=== PATIENT | male | born 1970 | race Caucasian/White ===

== ENCOUNTER 2016-07-25 20:31 | Inpatient (IN) | payer OTHER ==
[~2016-07-25] VITALS: Ht 177.8 cm; Wt 92.4 kg
[2016-07-25] MEDS ORDERED: SODIUM CHLORIDE 0.9% 1000ML 2,000 ML IV STA (21:01)
[2016-07-25] MEDS ORDERED: ONDANSETRON INJ 2 MG/ML 2 ML VIAL IV STA (21:01)
[2016-07-25] MEDS ORDERED: ACETAMINOPHEN 500 MG TAB PO STA (21:01)
--- NOTE | 2016-07-25 21:26 | DIAGNOSTIC IMAGING REPORT ---
CHEST ONE VIEW PORTABLE CLINICAL HISTORY: Fever. Sepsis. COMPARISON STUDY: No previous studies for comparison. FINDINGS: Lung volumes are normal. There is no pneumothorax or pleural effusion. There is mild reticulonodular interstitial thickening. There is no lobar consolidation. Cardiac size is at the upper limits of normal. Mediastinal contours are normal. IMPRESSION: Mild reticulonodular interstitial thickening. While this could be due to normal vessels, the findings raise the possibility of an infectious process. No consolidation identified. Electronically signed by: Ethan Duke M.D. 07/25/2016 9:24 PM Dictated Date/Time: 07/25/2016 9:23 PM
[2016-07-25 21:46] LABS: BASO % 0.3 %; BASO ABS # 0.02 K/uL (0-0.2); COMPLETE YES; EOS % 0.1 %; HEMATOCRIT 46.4 % (42-52); IG% 0.3 %; LYMPH % 9.1 %; LYMPH ABS # 0.72 K/uL (1.2-3.4); MEAN CELL VOLUME 87.9 fL (80-100); MEAN CORPUSCULAR HEMOGLOBIN 31.1 pg (25-34); MEAN CORPUSCULAR HGB CONC 35.3 g/dl (32-36); MEAN PLATELET VOLUME 11.2 fL (7.4-10.4); MONO % 10.1 %; NEUT % 80.1 %; PLATELET COUNT 147 K/uL (130-400); RED BLOOD COUNT 5.28 M/uL (4.7-6.1); WHITE BLOOD COUNT 7.94 K/uL (4.8-10.8)
[2016-07-25 22:05] LABS: ALT/SGPT 25 U/L (12-78); BLOOD UREA NITROGEN 13 mg/dl (7-18); CARBON DIOXIDE 21 mmol/L (21-32); CHLORIDE 105 mmol/L (98-107); CREATININE 0.83 mg/dl (0.60-1.40); GLUCOSE 118 mg/dl (70-99); POTASSIUM 3.6 mmol/L (3.5-5.1); SODIUM 137 mmol/L (136-145)
[2016-07-25 22:10] LABS: ALKALINE PHOSPHATASE 72 U/L (45-117); AST/SGOT 17 U/L (15-37)
[2016-07-25 22:11] LABS: URINE APPEARANCE CLEAR (CLEAR); URINE BILIRUBIN NEG (NEG); URINE COLOR DK YELLOW; URINE NITRITE NEG (NEG); URINE SPECIFIC GRAVITY 1.023 (1.000-1.030); UROBILINOGEN NEG (NEG); ZZUR CULT IF INDIC CLEAN CATCH NO
[2016-07-25 22:12] LABS: MANUAL MICROSCOPIC REQUIRED? NO; REVIEW REQ? NO
[2016-07-25 22:16] LABS: CALCIUM 8.7 mg/dl (8.5-10.1)
[2016-07-25] MEDS ORDERED: VANCOMYCIN INJ 2,300 MG in SODIUM CHLORIDE 0.9% 500ML 500 ML IV STA (22:23)
[2016-07-25] MEDS ORDERED: CEFTRIAXONE SOD INJ 1 GM ADDVIAL IV STA (22:23)
[2016-07-25 22:51] LABS: LYME DISEASE AB IGG NEG (NEG); LYME DISEASE AB IGM NEG (NEG)
[2016-07-25 23:20] LABS: PROCALCITONIN 0.25 ng/ml (0-0.5)
--- NOTE | 2016-07-25 23:30 | EMERGENCY ROOM VISIT NOTE ---
History Report prepared by Lion: Nasir Tipton Under the Supervision of: Dr. Eusebio Winn M.D. First contact with patient: 20:44 Chief Complaint: FEVER Stated Complaint: HIGH FEVER, CHILLS, HEADACHE, BODY ACHES, NAUSEA History of Present Illness The patient is a 45 year old male who presents to the Emergency Room with complaints of persistent fevers beginning 2 days ago. He also complains of a headache, nausea, weakness, chills and body aches. He has taken Ibuprofen as well as Tylenol for his symptoms but has seen minimal relief. The patient states "it is unpleasant to urinate", but denies any pain. He denies any pain with defecation. He denies any lymphadenopathy, sore throat, chest pain or vomiting. The patient has no known tick bites but notes that he works outside frequently. He notes that he has had a small rash on his neck for a few days. Source of History: patient Onset: 2 days ago Quality: other (fevers) Timing: other (persistent) Associated Symptoms: + chills, + headache, + sorethroat, + nausea, + weakness, + rash, + lymphadenopathy, No chest pain, No vomiting Note: The patient also complains of body aches. Review of Systems See HPI for pertinent positives & negatives. A total of 10 systems reviewed and were otherwise negative. Past Medical & Surgical Medical Problems: (1) No Known Active Medical Problems Family History No pertinent family history stated. Social History Smoking Status: Former Smoker Housing Status: lives with family Occupation Status: employed Current/Historical Medications No Active Prescriptions or Reported Meds Allergies Coded Allergies: No Known Allergies (Unverified , 07/25/16) Physical Exam Vital Signs Date Time Temp Pulse Resp B/P (MAP) Pulse Ox O2 Delivery O2 Flow Rate FiO2 07/25/16 23:07 36.7 82 18 104/57 95 Room Air 07/25/16 20:39 39.1 106 18 104/62 96 Room Air Physical Exam GENERAL: Patient is dehydrated appearing and in mild distress. HEENT: No acute trauma, normocephalic atraumatic, mucous membranes moist, no nasal congestion, no scleral icterus. NECK: No stridor, no adenopathy, no meningismus, trachea is midline. LUNGS: No dyspnea. Clear to auscultation and equal bilaterally. No wheeze, no rhonchi. HEART: Tachycardic rate with a regular rhythm. No murmurs, rubs, gallops appreciated. ABDOMEN: Soft, nontender, bowel sounds positive, no masses appreciated, no peritonitis. BACK: No midline tenderness, no CVA tenderness EXTREMITIES: Normal motion all extremities, no cyanosis, no edema. NEUROLOGIC: Alert and oriented, no acute motor or sensory deficits, no focal weakness, cranial nerves grossly intact. SKIN: No jaundice, no diaphoresis. Small insect bite in right lower neck with surrounding cellulitis. Medical Decision & Procedures ER Provider Diagnostic Interpretation: X ray results are stated below per my interpretation and the radiologist's interpretation. CHEST ONE VIEW PORTABLE FINDINGS: Lung volumes are normal. There is no pneumothorax or pleural effusion. There is mild reticulonodular interstitial thickening. There is no lobar consolidation. Cardiac size is at the upper limits of normal. Mediastinal contours are normal. IMPRESSION: Mild reticulonodular interstitial thickening. While this could be due to normal vessels, the findings raise the possibility of an infectious process. No consolidation identified. Electronically signed by: Ethan Duke M.D. Laboratory Results 07/25/16 21:32 Red Blood Count 5.28, Mean Corpuscular Volume 87.9, Mean Corpuscular Hemoglobin 31.1, Mean Corpuscular Hemoglobin Concent 35.3, Mean Platelet Volume 11.2, Neutrophils (%) (Auto) 80.1, Lymphocytes (%) (Auto) 9.1, Monocytes (%) (Auto) 10.1, Eosinophils (%) (Auto) 0.1, Basophils (%) (Auto) 0.3, Neutrophils # (Auto ) 6.37, Lymphocytes # (Auto) 0.72, Monocytes # (Auto) 0.80, Eosinophils # (Auto ) 0.01, Basophils # (Auto) 0.02 07/25/16 21:32 Test 07/25/16 21:32 07/25/16 21:39 07/25/16 21:50 White Blood Count 7.94 K/uL (4.8-10.8) Red Blood Count 5.28 M/uL (4.7-6.1) Hemoglobin 16.4 g/dL (14.0-18.0) Hematocrit 46.4 % (42-52) Mean Corpuscular Volume 87.9 fL (80-100) Mean Corpuscular Hemoglobin 31.1 pg (25-34) Mean Corpuscular Hemoglobin Concent 35.3 g/dl (32-36) Platelet Count 147 K/uL (130-400) Mean Platelet Volume 11.2 fL (7.4-10.4) Neutrophils (%) (Auto) 80.1 % Lymphocytes (%) (Auto) 9.1 % Monocytes (%) (Auto) 10.1 % Eosinophils (%) (Auto) 0.1 % Basophils (%) (Auto) 0.3 % Neutrophils # (Auto) 6.37 K/uL (1.4-6.5) Lymphocytes # (Auto) 0.72 K/uL (1.2-3.4) Monocytes # (Auto) 0.80 K/uL (0.11-0.59) Eosinophils # (Auto) 0.01 K/uL (0-0.5) Basophils # (Auto) 0.02 K/uL (0-0.2) RDW Standard Deviation 40.7 fL (36.4-46.3) RDW Coefficient of Variation 12.6 % (11.5-14.5) Immature Granulocyte % (Auto) 0.3 % Immature Granulocyte # (Auto) 0.02 K/uL (0.00-0.02) Anion Gap 11.0 mmol/L (3-11) Est Creatinine Clear Calc Drug Dose 127.6 ml/min Estimated GFR () 124.0 Estimated GFR (Non- 107.0 BUN/Creatinine Ratio 16.0 (10-20) Calcium Level 8.7 mg/dl (8.5-10.1) Total Bilirubin 0.6 mg/dl (0.2-1) Aspartate Amino Transf (AST/SGOT) 17 U/L (15-37) Alanine Aminotransferase (ALT/SGPT) 25 U/L (12-78) Alkaline Phosphatase 72 U/L (45-117) Total Creatine Kinase 28 U/L (39-308) Troponin I < 0.015 ng/ml (0-0.045) C-Reactive Protein 12.70 mg/dl (0-0.29) Total Protein 7.2 gm/dl (6.4-8.2) Albumin 3.6 gm/dl (3.4-5.0) Globulin 3.6 gm/dl (2.5-4.0) Albumin/Globulin Ratio 1.0 (0.9-2) Procalcitonin 0.25 ng/ml (0-0.5) Lyme Disease IgG Antibody NEG (NEG) Lyme Disease IgM Antibody NEG (NEG) Bedside Lactic Acid Venous 0.71 mmol/L (0.90-1.70) Urine Color DK YELLOW Urine Appearance CLEAR (CLEAR) Urine pH 6.0 (4.5-7.5) Urine Specific [place] 1.023 (1.000-1.030) Urine Protein 1+ (NEG) Urine Glucose (UA) NEG (NEG) Urine Ketones 3+ (NEG) Urine Occult Blood 2+ (NEG) Urine Nitrite NEG (NEG) Urine Bilirubin NEG (NEG) Urine Urobilinogen NEG (NEG) Urine Leukocyte Esterase NEG (NEG) Urine WBC (Auto) 1-5 /hpf (0-5) Urine RBC (Auto) 10-30 /hpf (0-4) Urine Hyaline Casts (Auto) 1-5 /lpf (0-5) Urine Epithelial Cells (Auto) 10-20 /lpf (0-5) Urine Bacteria (Auto) NEG (NEG) Laboratory results as reviewed by me. Medications Administered Medications (Trade) Dose Ordered Sig/[place] Route Start Time Stop Time Status Last Admin Dose Admin Sodium Chloride 2,000 ml @ 999 mls/hr Q2H1M STAT IV 07/25/16 21:01 07/25/16 23:01 DC 07/25/16 21:01 999 MLS/HR Acetaminophen (Tylenol Tab) 1,000 mg NOW STAT PO 07/25/16 21:01 07/25/16 21:03 DC 07/25/16 21:43 1,000 MG Ondansetron HCl (Zofran Inj) 4 mg NOW STAT IV 07/25/16 21:01 07/25/16 21:03 DC 07/25/16 21:43 4 MG Ceftriaxone Sodium (Rocephin Inj) 1 gm NOW STAT IV 07/25/16 22:23 07/25/16 22:25 DC 07/25/16 23:05 1 GM ED Course 2046: The patient was evaluated in room B2. A complete history and physical exam was performed. 2100: Ordered Zofran Inj 4 mg IV, Tylenol Tab 1000 mg PO, Sodium Chloride 2000 mL @ 999 mL/hr IV. Medical Decision Differential: Viral, Pharyngitis, Cellulitis, Pneumonia, Influenza, Meningitis, Sepsis, Bacteremia, UTI/Pyelonephritis, Endocrine, Toxicologic, amongst other pathologies entertained. 45 yr old male arrives quite ill appearing with right anterior neck cellulitis. Does not appear meningitic and I do not feel he has meningitis. Fever, tachycardia and ill appearing. 2 L NSS bolus, Tylenol given with vast improvement in how he looks, HR down, and patient feeling much better. CXR with questionable early pneumonia though patient denies any lung symptoms. WBC OK, though CRP severely elevated. Lyme negative. Procalcitonin currently not significantly elevated. He has blood in urine though no evidence rhabdo. Given severity of how poorly he looked on arrival I feel that bringing in for IV abx and close monitoring is acceptable. Hospitalist consulted for further evaluation/management. Impression Primary Impression: Fever Additional Impressions: Cellulitis Pneumonia Sepsis Scribe Attestation The scribe's documentation has been prepared under my direction and personally reviewed by me in its entirety. I confirm that the note above accurately reflects all work, treatment, procedures, and medical decision making performed by me. Departure Information Prescriptions No Active Prescriptions or Reported Meds Referrals No Doctor, Assigned (PCP) Patient Instructions My [facility] Problem Qualifiers
[2016-07-26] VITALS (8 sets, daily range): BP systolic 90–120; BP diastolic 56–71; PULSE 74–100; TEMP 36.3–38.7; O2SAT 94–100; Ht 177.8 cm; Wt 92.4 kg
[2016-07-26] MEDS ORDERED: ACETAMINOPHEN 325 MG TAB PO PRN (00:15)
--- NOTE | 2016-07-26 00:30 | History and Physical ---
History & Physical Date & Time of Service: Jul 26, 2016 at 00:23 Chief Complaint: High Fever, Chills, Headache, Body Aches, Nausea Primary Care Physician: No Doctor, Assigned History of Present Illness Source: patient This is a 45 year old male who presents to the ER due to fevers for two days - he states he was weak and lethargic as well. Could not associate any other symptoms with his fevers; denies any nausea/vomiting/diarrhea, denies shortness of breath or cough. Did note a rash on his R neck; states he thought it was a bug bite and thought nothing of it. Upon presentation to the ER, he was noted to have fevers and tachycardia, he was diaphoretic as well; was given IVFs and tylenol and antibiotics and he currently feels better. Social History Smoking Status: Former Smoker Occupational Status: employed Allergies Coded Allergies: No Known Allergies (Unverified , 07/25/16) Home Medications No Active Prescriptions or Reported Meds Review of Systems Constitutional: + fever, + chills, + sweats, + weakness, + fatigue, No weight loss Respiratory: No cough, No sputum, No shortness of breath, No dyspnea on exertion Cardiovascular: No chest pain Abdomen: No pain, No nausea, No vomiting, No diarrhea Musculoskeletal: No joint pain, No muscle pain Genitourinary - Male: No hematuria, No dysuria, No urinary frequency, No urinary urgency Neurologic: + weakness, No numbness/tingling, No balance problems Psychiatric: No depression symptoms Hematologic / Lymphatic: No abnormal bleeding/bruising Integumentary: + rash Allergic / Immunologic: No environmental allergies, No seasonal allergies Physical Exam Vital Signs Date Time Temp Pulse Resp B/P (MAP) Pulse Ox O2 Delivery O2 Flow Rate FiO2 07/25/16 23:07 36.7 82 18 104/57 95 Room Air 07/25/16 20:39 39.1 106 18 104/62 96 Room Air General Appearance: no apparent distress Head: normocephalic, atraumatic Eyes: normal inspection ENT: + pertinent finding (anterior neck; erythema noted surrounding small pustule) Respiratory/Chest: chest non-tender, lungs clear, normal breath sounds, no respiratory distress, no accessory muscle use Cardiovascular: regular rate, rhythm, no edema, no gallop, no JVD, no murmur, normal peripheral pulses Abdomen/GI: normal bowel sounds, non tender, soft Extremities/Musculoskelatal: no calf tenderness, normal capillary refill, no pedal edema Neurologic/Psych: chief of hospital medicine II-XII nml as tested, no motor/sensory deficits, alert, normal mood/affect, oriented x 3 Skin: normal color Lymphatic: no adenopathy Diagnostics Laboratory Results Results Past 24 Hours Test 07/25/16 21:32 07/25/16 21:39 07/25/16 21:50 Range/Units White Blood Count 7.94 4.8-10.8 K/uL Red Blood Count 5.28 4.7-6.1 M/uL Hemoglobin 16.4 14.0-18.0 g/dL Hematocrit 46.4 42-52 % Mean Corpuscular Volume 87.9 80-100 fL Mean Corpuscular Hemoglobin 31.1 25-34 pg Mean Corpuscular Hemoglobin Concent 35.3 32-36 g/dl Platelet Count 147 130-400 K/uL Mean Platelet Volume 11.2 7.4-10.4 fL Neutrophils (%) (Auto) 80.1 % Lymphocytes (%) (Auto) 9.1 % Monocytes (%) (Auto) 10.1 % Eosinophils (%) (Auto) 0.1 % Basophils (%) (Auto) 0.3 % Neutrophils # (Auto) 6.37 1.4-6.5 K/uL Lymphocytes # (Auto) 0.72 1.2-3.4 K/uL Monocytes # (Auto) 0.80 0.11-0.59 K/uL Eosinophils # (Auto) 0.01 0-0.5 K/uL Basophils # (Auto) 0.02 0-0.2 K/uL RDW Standard Deviation 40.7 36.4-46.3 fL RDW Coefficient of Variation 12.6 11.5-14.5 % Immature Granulocyte % (Auto) 0.3 % Immature Granulocyte # (Auto) 0.02 0.00-0.02 K/uL Sodium Level 137 136-145 mmol/L Potassium Level 3.6 3.5-5.1 mmol/L Chloride Level 105 98-107 mmol/L Carbon Dioxide Level 21 21-32 mmol/L Anion Gap 11.0 3-11 mmol/L Blood Urea Nitrogen 13 7-18 mg/dl Creatinine 0.83 0.60-1.40 mg/dl Est Creatinine Clear Calc Drug Dose 127.6 ml/min Estimated GFR () 124.0 Estimated GFR (Non- 107.0 BUN/Creatinine Ratio 16.0 10-20 Random Glucose 118 70-99 mg/dl Calcium Level 8.7 8.5-10.1 mg/dl Total Bilirubin 0.6 0.2-1 mg/dl Aspartate Amino Transf (AST/SGOT) 17 15-37 U/L Alanine Aminotransferase (ALT/SGPT) 25 12-78 U/L Alkaline Phosphatase 72 45-117 U/L Total Creatine Kinase 28 39-308 U/L Troponin I < 0.015 0-0.045 ng/ml C-Reactive Protein 12.70 0-0.29 mg/dl Total Protein 7.2 6.4-8.2 gm/dl Albumin 3.6 3.4-5.0 gm/dl Globulin 3.6 2.5-4.0 gm/dl Albumin/Globulin Ratio 1.0 0.9-2 Procalcitonin 0.25 0-0.5 ng/ml Lyme Disease IgG Antibody NEG NEG Lyme Disease IgM Antibody NEG NEG Bedside Lactic Acid Venous 0.71 0.90-1.70 mmol/L Urine Color DK YELLOW Urine Appearance CLEAR CLEAR Urine pH 6.0 4.5-7.5 Urine Specific [place] 1.023 1.000-1.030 Urine Protein 1+ NEG Urine Glucose (UA) NEG NEG Urine Ketones 3+ NEG Urine Occult Blood 2+ NEG Urine Nitrite NEG NEG Urine Bilirubin NEG NEG Urine Urobilinogen NEG NEG Urine Leukocyte Esterase NEG NEG Urine WBC (Auto) 1-5 0-5 /hpf Urine RBC (Auto) 10-30 0-4 /hpf Urine Hyaline Casts (Auto) 1-5 0-5 /lpf Urine Epithelial Cells (Auto) 10-20 0-5 /lpf Urine Bacteria (Auto) NEG NEG Microbiology Results 07/25/16 Blood Culture, Received Pending 07/25/16 Blood Culture, Received Pending Diagnostic Radiology CHEST ONE VIEW PORTABLE CLINICAL HISTORY: Fever. Sepsis. COMPARISON STUDY: No previous studies for comparison. FINDINGS: Lung volumes are normal. There is no pneumothorax or pleural effusion. There is mild reticulonodular interstitial thickening. There is no lobar consolidation. Cardiac size is at the upper limits of normal. Mediastinal contours are normal. IMPRESSION: Mild reticulonodular interstitial thickening. While this could be due to normal vessels, the findings raise the possibility of an infectious process. No consolidation identified. Impression Assessment and Plan This is a 45 year old male who presents to the ER due to fevers for two days R anterior neck Cellulitis possibly secondary to bug bite no other source of infection found so far for now, we can continue IVFs Vancomycin, switch to oral antibiotics in 1-2 days Tylenol PRN for fevers Possible pneumonia CXR suggests possible pneumonia - one view portable will obtain two view CXR in AM FULL CODE VTE Prophylaxis VTE Risk Assessment Done? Y/N: Yes Risk Level: Low Given or contraindicated: Treatment not indicated
[2016-07-26] MEDS ORDERED: VANCOMYCIN CONSULT ACTIVE PRN (00:45)
[2016-07-26] MEDS: SODIUM CHLORIDE 0.9% 1000ML 1,000 ML IV SCH ×3 (04:04→20:52)
[2016-07-26 05:41] LABS: HEMATOCRIT 46.2 % (42-52); MEAN CELL VOLUME 90.4 fL (80-100); MEAN CORPUSCULAR HEMOGLOBIN 31.5 pg (25-34); MEAN CORPUSCULAR HGB CONC 34.8 g/dl (32-36); MEAN PLATELET VOLUME 11.7 fL (7.4-10.4); PLATELET COUNT 126 K/uL (130-400); RED BLOOD COUNT 5.11 M/uL (4.7-6.1); WHITE BLOOD COUNT 7.45 K/uL (4.8-10.8)
--- NOTE | 2016-07-26 06:04 | Pharmacy Progress Note ---
Pharmacy Antibiotic Consult Date of Service: Jul 26, 2016. Pharmacy Dosing Scope Pharmacy is consulted to initiate Vancomycin IV dosing therapy, order appropriate labs and adjust drug dose/frequency. Subjective The patient is a 45 year old male admitted on Jul 26, 2016 at 00:20 for cellulitis of R anterior area of his neck. He has had fevers x 2 days and had thought the area in question on his neck was due to a bug bite. Dr. Bowling ordered Vancomycin to continue after loading dose ordered by ED physician. Objective Height (Feet): 5 Height (Inches): 10.00 Weight (Kilograms): 92.400 Lab Results (24hrs): Test 07/25/16 21:32 07/25/16 21:39 07/25/16 21:50 07/26/16 05:08 White Blood Count 7.94 K/uL (4.8-10.8) 7.45 K/uL (4.8-10.8) Red Blood Count 5.28 M/uL (4.7-6.1) 5.11 M/uL (4.7-6.1) Hemoglobin 16.4 g/dL (14.0-18.0) 16.1 g/dL (14.0-18.0) Hematocrit 46.4 % (42-52) 46.2 % (42-52) Mean Corpuscular Volume 87.9 fL (80-100) 90.4 fL (80-100) Mean Corpuscular Hemoglobin 31.1 pg (25-34) 31.5 pg (25-34) Mean Corpuscular Hemoglobin Concent 35.3 g/dl (32-36) 34.8 g/dl (32-36) Platelet Count 147 K/uL (130-400) 126 K/uL (130-400) Mean Platelet Volume 11.2 fL (7.4-10.4) 11.7 fL (7.4-10.4) Neutrophils (%) (Auto) 80.1 % Lymphocytes (%) (Auto) 9.1 % Monocytes (%) (Auto) 10.1 % Eosinophils (%) (Auto) 0.1 % Basophils (%) (Auto) 0.3 % Neutrophils # (Auto) 6.37 K/uL (1.4-6.5) Lymphocytes # (Auto) 0.72 K/uL (1.2-3.4) Monocytes # (Auto) 0.80 K/uL (0.11-0.59) Eosinophils # (Auto) 0.01 K/uL (0-0.5) Basophils # (Auto) 0.02 K/uL (0-0.2) RDW Standard Deviation 40.7 fL (36.4-46.3) 42.7 fL (36.4-46.3) RDW Coefficient of Variation 12.6 % (11.5-14.5) 12.9 % (11.5-14.5) Immature Granulocyte % (Auto) 0.3 % Immature Granulocyte # (Auto) 0.02 K/uL (0.00-0.02) Sodium Level 137 mmol/L (136-145) Potassium Level 3.6 mmol/L (3.5-5.1) Chloride Level 105 mmol/L (98-107) Carbon Dioxide Level 21 mmol/L (21-32) Anion Gap 11.0 mmol/L (3-11) Blood Urea Nitrogen 13 mg/dl (7-18) Creatinine 0.83 mg/dl (0.60-1.40) Est Creatinine Clear Calc Drug Dose 127.6 ml/min Estimated GFR () 124.0 Estimated GFR (Non- 107.0 BUN/Creatinine Ratio 16.0 (10-20) Random Glucose 118 mg/dl (70-99) Calcium Level 8.7 mg/dl (8.5-10.1) Total Bilirubin 0.6 mg/dl (0.2-1) Aspartate Amino Transf (AST/SGOT) 17 U/L (15-37) Alanine Aminotransferase (ALT/SGPT) 25 U/L (12-78) Alkaline Phosphatase 72 U/L (45-117) Total Creatine Kinase 28 U/L (39-308) Troponin I < 0.015 ng/ml (0-0.045) C-Reactive Protein 12.70 mg/dl (0-0.29) Total Protein 7.2 gm/dl (6.4-8.2) Albumin 3.6 gm/dl (3.4-5.0) Globulin 3.6 gm/dl (2.5-4.0) Albumin/Globulin Ratio 1.0 (0.9-2) Procalcitonin 0.25 ng/ml (0-0.5) Lyme Disease IgG Antibody NEG (NEG) Lyme Disease IgM Antibody NEG (NEG) Bedside Lactic Acid Venous 0.71 mmol/L (0.90-1.70) Urine Color DK YELLOW Urine Appearance CLEAR (CLEAR) Urine pH 6.0 (4.5-7.5) Urine Specific [place] 1.023 (1.000-1.030) Urine Protein 1+ (NEG) Urine Glucose (UA) NEG (NEG) Urine Ketones 3+ (NEG) Urine Occult Blood 2+ (NEG) Urine Nitrite NEG (NEG) Urine Bilirubin NEG (NEG) Urine Urobilinogen NEG (NEG) Urine Leukocyte Esterase NEG (NEG) Urine WBC (Auto) 1-5 /hpf (0-5) Urine RBC (Auto) 10-30 /hpf (0-4) Urine Hyaline Casts (Auto) 1-5 /lpf (0-5) Urine Epithelial Cells (Auto) 10-20 /lpf (0-5) Urine Bacteria (Auto) NEG (NEG) Micro Results: Item Value Date Time Blood Culture Received 07/25/162131 Blood Pending Blood Culture Received 07/25/162129 Blood Pending Assessment & Plan Loading dose: Vancomycin 2300mg IV X 1 dose then: Vancomycin 1350mg IV every 8 hours thereafter. I estimated this patients half life at around 6.3 hours. I will check a trough level prior to the 1800 dose on 07/27/16. Goal trough level estimate: between 15-20 mcg/mL. Pharmacy will continue to follow and will adjust dose/frequency as necessary. Thank you
--- NOTE | 2016-07-26 08:26 | DIAGNOSTIC IMAGING REPORT ---
CHEST 2 VIEWS ROUTINE CLINICAL HISTORY: Fever, sepsis. COMPARISON STUDY: 07/25/2016 FINDINGS: The heart remains mildly enlarged. There is subtle interstitial thickening similar to the prior study. There is no lobar consolidation. There is no failure. There are no pleural effusions.[ IMPRESSION: Persistent subtle interstitial thickening. No evidence of lobar consolidation. Electronically signed by: Bubba Ray M.D. 07/26/2016 8:25 AM Dictated Date/Time: 07/26/2016 8:23 AM
[2016-07-26] MEDS ORDERED: DOXYCYCLINE HYCLATE 100 MG CAP PO ONE (09:30)
[2016-07-26] MEDS ORDERED: VANCOMYCIN INJ 1,350 MG in SODIUM CHLORIDE 0.9% 250ML 250 ML IV SCH (10:00)
[2016-07-26] MEDS ORDERED: ACETAMINOPHEN 500 MG TAB PO ONE (12:13)
[2016-07-26] MEDS: CALCIUM CARBONATE 500 MG CHEWABLE PO PRN (13:47)
[2016-07-26] MEDS ORDERED: ANCEF PHARMACY CONSULT IN PROGRESS PRN (14:00)
[2016-07-26] MEDS ORDERED: CEFAZOLIN IV 2,000 MG in DEXTROSE 5% 50ML 50 ML IV SCH (14:00)
--- NOTE | 2016-07-26 18:48 | Progress Note ---
Internal Med Progress Note Date of Service: Jul 26, 2016. Provider Documentation: SUBJECTIVE: patient works in [employer] thinks he might have had spider bite has rash on right side of neck having fevers feeling somewhat better today OBJECTIVE: Vital Signs-as noted below Exam: General-alert and awake. Not in distress HEENT-Normal hearing has bulls eye type pattern rash on right side of neck Neck-no neck masses, supple Lungs-cta b/l no wheezing or crackles Heart-s1 and s2 heard irregular , no murmurs Abdomen-soft bowel sounds present non tender no distension Extremities- no edema present no erythema Neuro-alert and awake moves extremities Lab data as noted below. ASSESSMENT & PLAN: This is a 45 year old male who presents to the ER due to fevers for two days R anterior neck Cellulitis rash looks like bulls eye pattern lyme screen negative bit may be negative in initial infection will start on po doxycycline change iv vanco to Keflex will also check for co infection as platelets going down ID consulted Possible pneumonia CXR suggests possible pneumonia - one view portable Two view no consolidation. DVT PROPHYLAXIS scds DISPOSITION to be determined Vital Signs: Date Time Temp Pulse Resp B/P (MAP) Pulse Ox O2 Delivery O2 Flow Rate FiO2 07/26/16 16:15 Room Air 07/26/16 15:20 37.4 75 18 98/57 (71) 95 Room Air 07/26/16 10:41 94 Room Air 07/26/16 07:45 38.7 100 18 120/71 (87) 94 Room Air 07/26/16 01:54 36.3 74 20 90/57 (68) 96 Room Air 07/26/16 01:35 69 18 104/59 96 Room Air 07/26/16 01:30 100 Room Air 07/25/16 23:07 36.7 82 18 104/57 95 Room Air 07/25/16 20:39 39.1 106 18 104/62 96 Room Air Lab Results: Results Past 24 Hours Test 07/25/16 21:32 07/25/16 21:39 07/25/16 21:50 07/26/16 05:08 Range/Units White Blood Count 7.94 7.45 4.8-10.8 K/uL Red Blood Count 5.28 5.11 4.7-6.1 M/uL Hemoglobin 16.4 16.1 14.0-18.0 g/dL Hematocrit 46.4 46.2 42-52 % Mean Corpuscular Volume 87.9 90.4 80-100 fL Mean Corpuscular Hemoglobin 31.1 31.5 25-34 pg Mean Corpuscular Hemoglobin Concent 35.3 34.8 32-36 g/dl Platelet Count 147 126 130-400 K/uL Mean Platelet Volume 11.2 11.7 7.4-10.4 fL Neutrophils (%) (Auto) 80.1 % Lymphocytes (%) (Auto) 9.1 % Monocytes (%) (Auto) 10.1 % Eosinophils (%) (Auto) 0.1 % Basophils (%) (Auto) 0.3 % Neutrophils # (Auto) 6.37 1.4-6.5 K/uL Lymphocytes # (Auto) 0.72 1.2-3.4 K/uL Monocytes # (Auto) 0.80 0.11-0.59 K/uL Eosinophils # (Auto) 0.01 0-0.5 K/uL Basophils # (Auto) 0.02 0-0.2 K/uL RDW Standard Deviation 40.7 42.7 36.4-46.3 fL RDW Coefficient of Variation 12.6 12.9 11.5-14.5 % Immature Granulocyte % (Auto) 0.3 % Immature Granulocyte # (Auto) 0.02 0.00-0.02 K/uL Sodium Level 137 136-145 mmol/L Potassium Level 3.6 3.5-5.1 mmol/L Chloride Level 105 98-107 mmol/L Carbon Dioxide Level 21 21-32 mmol/L Anion Gap 11.0 3-11 mmol/L Blood Urea Nitrogen 13 7-18 mg/dl Creatinine 0.83 0.60-1.40 mg/dl Est Creatinine Clear Calc Drug Dose 127.6 ml/min Estimated GFR () 124.0 Estimated GFR (Non- 107.0 BUN/Creatinine Ratio 16.0 10-20 Random Glucose 118 70-99 mg/dl Calcium Level 8.7 8.5-10.1 mg/dl Total Bilirubin 0.6 0.2-1 mg/dl Aspartate Amino Transf (AST/SGOT) 17 15-37 U/L Alanine Aminotransferase (ALT/SGPT) 25 12-78 U/L Alkaline Phosphatase 72 45-117 U/L Total Creatine Kinase 28 39-308 U/L Troponin I < 0.015 0-0.045 ng/ml C-Reactive Protein 12.70 0-0.29 mg/dl Total Protein 7.2 6.4-8.2 gm/dl Albumin 3.6 3.4-5.0 gm/dl Globulin 3.6 2.5-4.0 gm/dl Albumin/Globulin Ratio 1.0 0.9-2 Procalcitonin 0.25 0-0.5 ng/ml Lyme Disease IgG Antibody NEG NEG Lyme Disease IgM Antibody NEG NEG Bedside Lactic Acid Venous 0.71 0.90-1.70 mmol/L Urine Color DK YELLOW Urine Appearance CLEAR CLEAR Urine pH 6.0 4.5-7.5 Urine Specific [place] 1.023 1.000-1.030 Urine Protein 1+ NEG Urine Glucose (UA) NEG NEG Urine Ketones 3+ NEG Urine Occult Blood 2+ NEG Urine Nitrite NEG NEG Urine Bilirubin NEG NEG Urine Urobilinogen NEG NEG Urine Leukocyte Esterase NEG NEG Urine WBC (Auto) 1-5 0-5 /hpf Urine RBC (Auto) 10-30 0-4 /hpf Urine Hyaline Casts (Auto) 1-5 0-5 /lpf Urine Epithelial Cells (Auto) 10-20 0-5 /lpf Urine Bacteria (Auto) NEG NEG Test 07/26/16 10:26 Range/Units Microbiology Results 07/25/16 Blood Culture, Received Pending 07/25/16 Blood Culture, Received Pending
[2016-07-26] MEDS: DOXYCYCLINE HYCLATE 100 MG CAP PO SCH (20:52)
[2016-07-26] MEDS: ACETAMINOPHEN 500 MG TAB PO PRN (22:05)
[2016-07-26] MEDS: CEFAZOLIN IV 1,000 MG in DEXTROSE 5% 50ML 50 ML IV SCH (22:05)
[2016-07-26] MEDS ORDERED: IBUPROFEN 600 MG TAB PO STA (23:12)
[2016-07-27] MEDS: CEFAZOLIN IV 1,000 MG in DEXTROSE 5% 50ML 50 ML IV SCH ×3 (05:42→21:37)
[2016-07-27] MEDS: SODIUM CHLORIDE 0.9% 1000ML 1,000 ML IV SCH ×2 (05:43→15:51)
[2016-07-27 07:17] VITALS: BP 101/67; PULSE 58; TEMP 36.3; O2SAT 97
[2016-07-27] MEDS: DOXYCYCLINE HYCLATE 100 MG CAP PO SCH ×2 (07:42→20:26)
[2016-07-27 07:59] LABS: BASO % 0.5 %; BASO ABS # 0.03 K/uL (0-0.2); COMPLETE YES; EOS % 3.3 %; LYMPH % 38.8 %; LYMPH ABS # 2.14 K/uL (1.2-3.4); MEAN CELL VOLUME 89.2 fL (80-100); MEAN CORPUSCULAR HEMOGLOBIN 29.9 pg (25-34); MEAN CORPUSCULAR HGB CONC 33.6 g/dl (32-36); MEAN PLATELET VOLUME 11.4 fL (7.4-10.4); MONO % 16.3 %; NEUT % 41.1 %; PLATELET COUNT 128 K/uL (130-400); RED BLOOD COUNT 4.71 M/uL (4.7-6.1); WHITE BLOOD COUNT 5.52 K/uL (4.8-10.8)
[2016-07-27 08:34] LABS: BUN/CREATININE RATIO 11.7 (10-20); CREATININE 0.76 mg/dl (0.60-1.40); POTASSIUM 3.5 mmol/L (3.5-5.1)
[2016-07-27 09:05] LABS: CALCIUM 7.9 mg/dl (8.5-10.1)
--- NOTE | 2016-07-27 11:05 | Medical Consult ---
Consultation Date of Consultation: Jul 27, 2016. Attending Physician: Mayank Obrien MD Reason for Consultation: Tick bite History of Present Illness Patient is a 45-year-old male presented to the emergency department with complaint of 3 days of fever and insomnia. The patient also noted headache, nausea, weakness, chills, sweats, myalgias, and dehydration. 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 He states that he does not recall any particular tick bite, but has been exposed to many ticks recently. He states that he has had a small rash on his neck on the right side of for multiple days. He has not noted rash anywhere else on his body. He states that he has not traveled outside the country recently. He has no close contact with cattle or horses. Since current admission, the patient's white blood cell count has been stable and was 7.94 on admission. His platelet count has decreased slightly and was 128 today. ED his liver function studies have been stable, and his creatinine was 0.76. His C-reactive protein was however 12.70, and procalcitonin was 0.25. His blood cultures are currently showing no growth. He did have a chest x-ray which showed subtle interstitial thickening but no evidence of consolidation. The patient was started on IV Ancef and p.o. doxycycline. The patient states that he has already started to feel slightly better today. He does also note that as an outpatient, he recently was seen for his yearly physical for work. He was noted to have ketones and blood in his urine time, but was told that he does not have diabetes. He has not been further worked up yet. Past Medical/Surgical History Medical Problems: (1) Cellulitis Status: Acute (2) Fever Status: Acute (3) Pneumonia Status: Acute (4) Sepsis Status: Acute Medical Problems: (1) No Known Active Medical Problems Family History Noncontributory Social History Smoking Status: Never Smoker Housing Status: lives with family Occupation Status: employed Allergies Coded Allergies: No Known Allergies (Unverified , 07/25/16) Home Medications Reported Home Medications Medications Dose Route/Sig Max Daily Dose Days Date Category No Active Prescriptions or Reported Medications Rx Current Inpatient Medications Current Inpatient Medications Medications (Trade) Dose Ordered Sig/[place] Route Start Time Stop Time Status Last Admin Dose Admin Sodium Chloride 1,000 ml @ 100 mls/hr Q10H IV 07/26/16 00:30 08/25/16 00:29 07/27/16 05:43 100 MLS/HR Doxycycline Hyclate (Vibramycin Cap) 100 mg BID PO 07/26/16 21:00 08/05/16 20:59 07/27/16 07:42 100 MG Acetaminophen (Tylenol Tab) 1,000 mg TID PRN PO 07/26/16 21:00 08/25/16 20:59 07/26/16 22:05 1,000 MG Calcium Carbonate (Tums Chew Tab) 500 mg TID PRN PO 07/26/16 12:15 08/25/16 12:14 07/26/16 13:47 500 MG Miscellaneous Information 1 ea UD PRN N/A 07/26/16 14:00 08/25/16 13:59 Cefazolin Sodium 1000 mg/Dextrose 55 ml @ 100 mls/hr Q8@0600,1400,2200 IV 07/26/16 22:00 08/05/16 21:59 07/27/16 05:42 100 MLS/HR Review of Systems Constitutional: + fever, + chills, + sweats, + fatigue, + problem reported ( headache on and off) Eyes: + problem reported (mild vision problems/blurry), No worsening of vision ENT: No hearing loss Respiratory: No cough, No shortness of breath Cardiovascular: + chest pain (mild chest myalgias at rest), + palpitations ( with fever) Abdomen: No pain, No nausea, No vomiting, No diarrhea Musculoskeletal: + joint pain, + muscle pain (generalized) Genitourinary - Male: + dysuria (very mild burning on admission- attributed to dehydration) Neurologic: No numbness/tingling Integumentary: + rash (right side of neck with erythematous patch) Physical Exam Date Time Temp Pulse Resp B/P (MAP) Pulse Ox O2 Delivery O2 Flow Rate FiO2 07/27/16 08:00 Room Air 07/27/16 07:17 36.3 58 18 101/67 (78) 97 07/27/16 00:00 Room Air 07/26/16 23:42 37.4 07/26/16 23:30 90 20 97/56 (70) 94 Room Air 07/26/16 23:07 38.5 07/26/16 16:15 Room Air 07/26/16 15:20 37.4 75 18 98/57 (71) 95 Room Air General Appearance: WD/WN, no apparent distress Head: normocephalic, atraumatic Eyes: normal inspection, sclerae normal ENT: hearing grossly normal Neck: supple, trachea midline, + pertinent finding (darkening of skin on back of neck ) Respiratory/Chest: chest non-tender, lungs clear, normal breath sounds, no respiratory distress, no accessory muscle use Cardiovascular: regular rate, rhythm, no murmur Abdomen/GI: normal bowel sounds, non tender, soft, no organomegaly Back: normal inspection, no CVA tenderness, no muscle spasm, normal range of motion Extremities/Musculoskelatal: normal inspection, no calf tenderness, no pedal edema Neurologic/Psych: alert, normal mood/affect, oriented x 3 Skin: + pertinent finding (erythematous area on the right neck which is approximately 9 cm in length and 3-4 cm in width. ) Laboratory Results CHEST 2 VIEWS ROUTINE CLINICAL HISTORY: Fever, sepsis. COMPARISON STUDY: 07/25/2016 FINDINGS: The heart remains mildly enlarged. There is subtle interstitial thickening similar to the prior study. There is no lobar consolidation. There is no failure. There are no pleural effusions.[ IMPRESSION: Persistent subtle interstitial thickening. No evidence of lobar consolidation. Item Value Date Time Blood Culture - Preliminary Resulted 07/25/162131 Blood NO GROWTH TO DATE. Blood Culture - Preliminary Resulted 07/25/162129 Blood NO GROWTH TO DATE. Last 24 Hours Test 07/27/16 07:40 White Blood Count 5.52 K/uL Red Blood Count 4.71 M/uL Hemoglobin 14.1 g/dL Hematocrit 42.0 % Mean Corpuscular Volume 89.2 fL Mean Corpuscular Hemoglobin 29.9 pg Mean Corpuscular Hemoglobin Concent 33.6 g/dl Platelet Count 128 K/uL Mean Platelet Volume 11.4 fL Neutrophils (%) (Auto) 41.1 % Lymphocytes (%) (Auto) 38.8 % Monocytes (%) (Auto) 16.3 % Eosinophils (%) (Auto) 3.3 % Basophils (%) (Auto) 0.5 % Neutrophils # (Auto) 2.27 K/uL Lymphocytes # (Auto) 2.14 K/uL Monocytes # (Auto) 0.90 K/uL Eosinophils # (Auto) 0.18 K/uL Basophils # (Auto) 0.03 K/uL RDW Standard Deviation 42.5 fL RDW Coefficient of Variation 12.9 % Immature Granulocyte % (Auto) 0.0 % Immature Granulocyte # (Auto) 0.00 K/uL Sodium Level 143 mmol/L Potassium Level 3.5 mmol/L Chloride Level 110 mmol/L Carbon Dioxide Level 25 mmol/L Anion Gap 8.0 mmol/L Blood Urea Nitrogen 9 mg/dl Creatinine 0.76 mg/dl Est Creatinine Clear Calc Drug Dose 141.7 ml/min Estimated GFR () 128.6 Estimated GFR (Non- 111.0 BUN/Creatinine Ratio 11.7 Random Glucose 95 mg/dl Calcium Level 7.9 mg/dl Assessment & Plan Patient with fever, myalgias, arthralgias, headache, and right sided neck rash in 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 He does not recall any particular tick bite, but he is aware that they are everywhere when he is working. The patient has received a few doses of Doxycycline at this time and is already beginning to feel better. Lyme screen is negative, but feel that this patient has probable early Lyme without conversion of screen yet. Blood cultures were negative. Urinalysis did show some ketones and occult blood, but does not appear to have UTI. Therefore, feel that this patient could continue PO Doxycycline 100 mg daily to complete 14 days. He can follow up with ID prn as outpatient for recurrent symptoms. Thanks Case reviewed and agree with above assessment.
[2016-07-27 14:34] VITALS: BP 95/63; PULSE 66; TEMP 36.3; O2SAT 97
[2016-07-27] MEDS: ACETAMINOPHEN 500 MG TAB PO PRN (15:57)
[2016-07-27] MEDS ORDERED: VANCOMYCIN TROUGH SCH (17:30)
--- NOTE | 2016-07-27 17:55 | Progress Note ---
Internal Med Progress Note Date of Service: Jul 27, 2016. Provider Documentation: SUBJECTIVE: feeling much better than yesterday appetite improved no sob or nausea has temp spike last night but febrile since today morning OBJECTIVE: Vital Signs-as noted below Exam: General-alert and awake. Not in distress HEENT-Normal hearing has rash on right side of neck Neck-no neck masses, supple Lungs-cta b/l no wheezing or crackles Heart-s1 and s2 heard irregular , no murmurs Abdomen-soft bowel sounds present non tender no distension Extremities- no edema present no erythema Neuro-alert and awake moves extremities Lab data as noted below. ASSESSMENT & PLAN: This is a 45 year old male who presents to the ER due to fevers for two days R anterior neck Cellulitis rash looks like bulls eye pattern lyme screen negative bit may be negative in initial infection will start on po doxycycline change iv vanco to Keflex will also check for co infection as platelets going down ID consulted and appreciate inputs improving continue current meds Possible pneumonia CXR suggests possible pneumonia - one view portable Two view no consolidation. DVT PROPHYLAXIS scds DISPOSITION possible d/c in am if stable Vital Signs: Date Time Temp Pulse Resp B/P (MAP) Pulse Ox O2 Delivery O2 Flow Rate FiO2 07/27/16 16:45 Room Air 07/27/16 14:34 36.3 66 18 95/63 (74) 97 07/27/16 08:00 Room Air 07/27/16 07:17 36.3 58 18 101/67 (78) 97 07/27/16 00:00 Room Air 07/26/16 23:42 37.4 07/26/16 23:30 90 20 97/56 (70) 94 Room Air 07/26/16 23:07 38.5 Lab Results: Results Past 24 Hours Test 07/27/16 07:40 Range/Units White Blood Count 5.52 4.8-10.8 K/uL Red Blood Count 4.71 4.7-6.1 M/uL Hemoglobin 14.1 14.0-18.0 g/dL Hematocrit 42.0 42-52 % Mean Corpuscular Volume 89.2 80-100 fL Mean Corpuscular Hemoglobin 29.9 25-34 pg Mean Corpuscular Hemoglobin Concent 33.6 32-36 g/dl Platelet Count 128 130-400 K/uL Mean Platelet Volume 11.4 7.4-10.4 fL Neutrophils (%) (Auto) 41.1 % Lymphocytes (%) (Auto) 38.8 % Monocytes (%) (Auto) 16.3 % Eosinophils (%) (Auto) 3.3 % Basophils (%) (Auto) 0.5 % Neutrophils # (Auto) 2.27 1.4-6.5 K/uL Lymphocytes # (Auto) 2.14 1.2-3.4 K/uL Monocytes # (Auto) 0.90 0.11-0.59 K/uL Eosinophils # (Auto) 0.18 0-0.5 K/uL Basophils # (Auto) 0.03 0-0.2 K/uL RDW Standard Deviation 42.5 36.4-46.3 fL RDW Coefficient of Variation 12.9 11.5-14.5 % Immature Granulocyte % (Auto) 0.0 % Immature Granulocyte # (Auto) 0.00 0.00-0.02 K/uL Sodium Level 143 136-145 mmol/L Potassium Level 3.5 3.5-5.1 mmol/L Chloride Level 110 98-107 mmol/L Carbon Dioxide Level 25 21-32 mmol/L Anion Gap 8.0 3-11 mmol/L Blood Urea Nitrogen 9 7-18 mg/dl Creatinine 0.76 0.60-1.40 mg/dl Est Creatinine Clear Calc Drug Dose 141.7 ml/min Estimated GFR () 128.6 Estimated GFR (Non- 111.0 BUN/Creatinine Ratio 11.7 10-20 Random Glucose 95 70-99 mg/dl Calcium Level 7.9 8.5-10.1 mg/dl
[2016-07-27] MEDS: ACETAMINOPHEN 325 MG TAB PO PRN (23:05)
[2016-07-27] MEDS: CALCIUM CARBONATE 500 MG CHEWABLE PO PRN (23:06)
[2016-07-27 23:27] VITALS: BP 103/69; PULSE 73; TEMP 37.1; O2SAT 97
[2016-07-28 00:15] VITALS: O2SAT 97
[2016-07-28] MEDS: SODIUM CHLORIDE 0.9% 1000ML 1,000 ML IV SCH ×2 (00:43→10:50)
[2016-07-28] MEDS: CEFAZOLIN IV 1,000 MG in DEXTROSE 5% 50ML 50 ML IV SCH (05:11)
[2016-07-28] MEDS: ACETAMINOPHEN 325 MG TAB PO PRN (07:05)
[2016-07-28 07:13] LABS: BASO % 0.3 %; BASO ABS # 0.03 K/uL (0-0.2); COMPLETE YES; EOS % 2.8 %; IG% 0.1 %; LYMPH % 21.8 %; LYMPH ABS # 2.19 K/uL (1.2-3.4); MEAN CELL VOLUME 87.7 fL (80-100); MEAN CORPUSCULAR HEMOGLOBIN 28.4 pg (25-34); MEAN CORPUSCULAR HGB CONC 32.4 g/dl (32-36); MEAN PLATELET VOLUME 11.8 fL (7.4-10.4); MONO % 10.1 %; NEUT % 64.9 %; PLATELET COUNT 151 K/uL (130-400); RED BLOOD COUNT 4.79 M/uL (4.7-6.1); WHITE BLOOD COUNT 10.03 K/uL (4.8-10.8)
[2016-07-28 07:20] VITALS: BP 111/76; PULSE 61; TEMP 36.7; O2SAT 92
[2016-07-28 07:57] LABS: BUN/CREATININE RATIO 11.9 (10-20); CREATININE 0.7 mg/dl (0.60-1.40); MAGNESIUM 1.8 mg/dl (1.8-2.4); POTASSIUM 3.4 mmol/L (3.5-5.1)
[2016-07-28 08:00] VITALS: O2SAT 97
[2016-07-28] MEDS: DOXYCYCLINE HYCLATE 100 MG CAP PO SCH (08:13)
[2016-07-28] MEDS ORDERED: POTASSIUM CHLORIDE 10 MEQ TABCR PO ONE (08:30)
[2016-07-28 10:54] VITALS: BP 111/76; PULSE 61; TEMP 36.7; O2SAT 97
[2016-07-28] MEDS ORDERED: DXY100 PO (13:40)
[2016-07-28] MEDS ORDERED: CEPH500C2 PO (13:40)
[2016-07-28] MEDS ORDERED: LCTX PO (13:40)
--- NOTE | 2016-07-28 13:42 | Discharge Instructions ---
Discharge Instructions Date of Service Jul 28, 2016. Admission Reason for Admission: Cellulitis Discharge Discharge Diagnosis / Problem: MOSTLIKELY LYME DISEASE, CELLULITIS? Discharge Goals Goal(s): Decrease discomfort Activity Recommendations Activity Limitations: resume your previous activity . Instructions / Follow-Up Instructions / Follow-Up FOLLOWUP WITH FAMILY DOCTOR IN ONE WEEK Current Hospital Diet Patient's current hospital diet: Regular Diet Discharge Diet Recommended Diet: Regular Diet Pending Studies Studies pending at discharge: no Medical Emergencies . Who to Call and When: Medical Emergencies: If at any time you feel your situation is an emergency, please call 911 immediately. . Non-Emergent Contact Non-Emergency issues call your: Primary Care Provider . . "Provider Documentation" section prepared by Mayank Obrien. . VTE Core Measure Inpt VTE Proph given/why not?: SCD's
--- NOTE | 2016-07-28 18:53 | Progress Note ---
Internal Med Progress Note Date of Service: Jul 28, 2016. Provider Documentation: SUBJECTIVE: resting comfortably feeling fine rash improved ok to go home OBJECTIVE: Vital Signs-as noted below Exam: General-alert and awake. Not in distress HEENT-Normal hearing has rash on right side of neck much improved Neck-no neck masses, supple Lungs-cta b/l no wheezing or crackles Heart-s1 and s2 heard irregular , no murmurs Abdomen-soft bowel sounds present non tender no distension Extremities- no edema present no erythema Neuro-alert and awake moves extremities Lab data as noted below. ASSESSMENT & PLAN: This is a 45 year old male who presents to the ER due to fevers for two days R anterior neck Cellulitis rash looks like bulls eye pattern lyme screen negative bit may be negative in initial infection will start on po doxycycline change iv vanco to Keflex will also check for co infection as platelets going down ID consulted and appreciate inputs improving discharged po doxycycline for 14 days and one week of Keflex f/u with pcp Possible pneumonia CXR suggests possible pneumonia - one view portable Two view no consolidation. discharged home Vital Signs: Date Time Temp Pulse Resp B/P (MAP) Pulse Ox O2 Delivery O2 Flow Rate FiO2 07/28/16 10:54 36.7 61 18 97 Room Air 07/28/16 08:00 97 Room Air 07/28/16 07:20 36.7 61 18 111/76 (88) 92 07/28/16 00:15 97 Room Air 07/27/16 23:27 37.1 73 20 103/69 (80) 97 Room Air Lab Results: Results Past 24 Hours Test 07/28/16 06:40 Range/Units White Blood Count 10.03 4.8-10.8 K/uL Red Blood Count 4.79 4.7-6.1 M/uL Hemoglobin 13.6 14.0-18.0 g/dL Hematocrit 42.0 42-52 % Mean Corpuscular Volume 87.7 80-100 fL Mean Corpuscular Hemoglobin 28.4 25-34 pg Mean Corpuscular Hemoglobin Concent 32.4 32-36 g/dl Platelet Count 151 130-400 K/uL Mean Platelet Volume 11.8 7.4-10.4 fL Neutrophils (%) (Auto) 64.9 % Lymphocytes (%) (Auto) 21.8 % Monocytes (%) (Auto) 10.1 % Eosinophils (%) (Auto) 2.8 % Basophils (%) (Auto) 0.3 % Neutrophils # (Auto) 6.51 1.4-6.5 K/uL Lymphocytes # (Auto) 2.19 1.2-3.4 K/uL Monocytes # (Auto) 1.01 0.11-0.59 K/uL Eosinophils # (Auto) 0.28 0-0.5 K/uL Basophils # (Auto) 0.03 0-0.2 K/uL RDW Standard Deviation 41.8 36.4-46.3 fL RDW Coefficient of Variation 12.9 11.5-14.5 % Immature Granulocyte % (Auto) 0.1 % Immature Granulocyte # (Auto) 0.01 0.00-0.02 K/uL Sodium Level 143 136-145 mmol/L Potassium Level 3.4 3.5-5.1 mmol/L Chloride Level 110 98-107 mmol/L Carbon Dioxide Level 24 21-32 mmol/L Anion Gap 9.0 3-11 mmol/L Blood Urea Nitrogen 8 7-18 mg/dl Creatinine 0.70 0.60-1.40 mg/dl Est Creatinine Clear Calc Drug Dose 153.8 ml/min Estimated GFR () 133.0 Estimated GFR (Non- 114.8 BUN/Creatinine Ratio 11.9 10-20 Random Glucose 96 70-99 mg/dl Calcium Level 8.0 8.5-10.1 mg/dl Magnesium Level 1.8 1.8-2.4 mg/dl
--- NOTE | 2016-07-28 19:16 | Discharge Summary ---
Discharge Summary Date of Service Jul 28, 2016. Discharge Summary Admission Date: Jul 26, 2016 at 00:20 Discharge Date: Jul 28, 2016 Discharge Disposition: Home Principal Diagnosis: MOST LIKELY LYME POSSIBLE CELLULITIS Procedures: CXR 2 VIEWS: Persistent subtle interstitial thickening. No evidence of lobar consolidation. Consultations: ID Medication Reconciliation New Medications: Cephalexin Monohydrate (Keflex) 500 Mg Cap 500 MG PO TID for 7 Days, #21 CAP Lactobacillus Acidophilus (Lactinex) Tab 2 TAB PO BID for 14 Days, TAB Doxycycline Hyclate (Doxycycline Hyclate) 100 Mg Cap 100 MG PO BID for 14 Days, #28 CAP Admission Information HPI (per Admitting provider): This is a 45 year old male who presents to the ER due to fevers for two days - he states he was weak and lethargic as well. Could not associate any other symptoms with his fevers; denies any nausea/vomiting/diarrhea, denies shortness of breath or cough. Did note a rash on his R neck; states he thought it was a bug bite and thought nothing of it. Upon presentation to the ER, he was noted to have fevers and tachycardia, he was diaphoretic as well; was given IVFs and tylenol and antibiotics and he currently feels better. 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, no motor/sensory deficits, alert , normal mood/affect, oriented x 3 Skin: normal color Lymphatic: no adenopathy Hospital Course This is a 45 year old male who presents to the ER due to fevers for two days R anterior neck Cellulitis rash looks like bulls eye pattern lyme screen negative bit may be negative in initial infection will start on po doxycycline change iv vanco to Keflex will also check for co infection as platelets going down ID consulted and appreciate inputs improving discharged po doxycycline for 14 days and one week of Keflex f/u with pcp Possible pneumonia CXR suggests possible pneumonia - one view portable Two view no consolidation. discharged home Total time spent on discharge = 35MINUTES This includes examination of the patient, discharge planning, medication reconciliation, and communication with other providers. Discharge Instructions Discharge Instructions Date of Service Jul 28, 2016. Admission Reason for Admission: Cellulitis Discharge Discharge Diagnosis / Problem: MOSTLIKELY LYME DISEASE, CELLULITIS? Discharge Goals Goal(s): Decrease discomfort Activity Recommendations Activity Limitations: resume your previous activity . Instructions / Follow-Up Instructions / Follow-Up FOLLOWUP WITH FAMILY DOCTOR IN ONE WEEK Current Hospital Diet Patient's current hospital diet: Regular Diet Discharge Diet Recommended Diet: Regular Diet Pending Studies Studies pending at discharge: no Medical Emergencies . Who to Call and When: Medical Emergencies: If at any time you feel your situation is an emergency, please call 911 immediately. . Non-Emergent Contact Non-Emergency issues call your: Primary Care Provider . . "Provider Documentation" section prepared by Mayank Obrien. . VTE Core Measure Inpt VTE Proph given/why not?: SCD's
[2016-07-31 21:53] LABS: ANAPLASMA PHAGOCYTOPHIL IGG <1:64 (<1:64); ANAPLASMA PHAGOCYTOPHIL IGM <1:20 (<1:20); EHRLICHIA CHAFF IGG AB <1:64 (<1:64); EHRLICHIA CHAFF IGM AB <1:20 (<1:20)
== END 2016-07-28 14:03 | disposition home or self-care (01) | DRG 867 ==
LOC: C.EDB 20:34 → C.MS2W 07-26 00:20 → ENRESERV 07-26 01:04
PROVIDERS: ADMIT Family Medicine; ATTEND Internal Medicine
DX: A69.20 Lyme disease, unspecified (principal); J18.9 Pneumonia, unspecified organism; L03.221 Cellulitis of neck; Z87.891 Personal history of nicotine dependence